=== PATIENT | female | born 1985 | race American Indian/Alaskan Native ===

== ENCOUNTER 2018-07-05 11:56 | Emergency (ER) | payer MEDICAID, OTHER ==
[2018-07-05 12:33] VITALS: BP 112/71
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
[2018-07-05] MEDS ORDERED: BOOSTRIX IM ONE (12:42)
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
--- NOTE | 2018-07-05 13:39 | XRay Report ---
Right wrist, right hand: Trauma, pain. AP and lateral views of the wrist are unremarkable. AP and lateral views of the hand demonstrates a comminuted fracture the base of the fifth metacarpal with fragmentation and mild separation of the fragments. The bone appears to be relatively well aligned. The adjacent carpal bone does not appear fractured and the remainder of the hand is generally unremarkable. Impression: Fifth metacarpal fracture.
== END 2018-07-05 13:31 | disposition home or self-care (01) ==
LOC: ED 11:56
DX: S62.346G Nondisplaced fracture of base of fifth metacarpal bone, right hand, subsequent encounter for fracture with delayed healing (principal); F17.200 Nicotine dependence, unspecified, uncomplicated; X58.XXXD Exposure to other specified factors, subsequent encounter
CPT/HCPCS: 90471; 90715

== ENCOUNTER 2019-10-03 12:07 | Emergency (ER) | payer OTHER ==
[2019-10-03 12:12] VITALS: BP 128/80
--- NOTE | 2019-10-03 12:17 | Emergency Department Report ---
Blank Doc - Documentation Documentation: 33-year-old female that presents with right ankle pain, neck pain, and lower b ack pain s/p trip and fall. This initial assessment/diagnostic orders/clinical plan/treatment(s) is/are subject to change based on patient's health status, clinical progression and re- assessment by fellow clinical providers in the ED. Further treatment and workup at subsequent clinical providers discretion. Patient/guardians urged not to elope from the ED as their condition may be serious if not clinically assessed and managed. Initial orders include: 1- Patient sent to [facility] for further evaluation and treatment 2- xrays
[2019-10-03 13:04] LABS: Bilirubin,Urine NEG (Negative); Blood,Urine SM (Negative); Color,Urine Yellow (Yellow); Mucus,Urine 1+ /HPF; Protein,Urine <15 mg/dL mg/dL (Negative); Urobilinogen,Urine < 2.0 mg/dL (<2.0)
[2019-10-03 13:11] LABS: HCG Qualitative,Urine Negative (Negative)
--- NOTE | 2019-10-03 13:46 | XRay Report ---
XR spine cervical 2-3V INDICATION / CLINICAL INFORMATION: Neck pain after fall. COMPARISON: None available. FINDINGS: BONES/JOINT(S): No acute fracture or subluxation. No significant degenerative changes. SOFT TISSUES: No significant abnormality. ADDITIONAL FINDINGS: None. Signer Name: Pedro Skelton MD Signed: 10/03/2019 1:42 PM Workstation Name: [id number]
--- NOTE | 2019-10-03 13:47 | XRay Report ---
XR spine lumbosacral 2-3V INDICATION / CLINICAL INFORMATION: Back pain after fall. COMPARISON: None available. FINDINGS: BONES/JOINT(S): No acute fracture or subluxation. No significant degenerative changes. SOFT TISSUES: No significant abnormality. ADDITIONAL FINDINGS: None. Signer Name: Pedro Skelton MD Signed: 10/03/2019 1:42 PM Workstation Name: [id number]
--- NOTE | 2019-10-03 13:47 | XRay Report ---
XR ankle 3+V RT INDICATION / CLINICAL INFORMATION: pain s/p fall. COMPARISON: None available. FINDINGS: BONES/JOINT(S): No acute fracture or subluxation. Remote well-corticated avulsion fragments from the medial and lateral malleoli. No significant degenerative change. SOFT TISSUES: No significant abnormality. ADDITIONAL FINDINGS: None. Signer Name: Pedro Skelton MD Signed: 10/03/2019 1:43 PM Workstation Name: [id number]
--- NOTE | 2019-10-03 14:16 | Emergency Department Report ---
ED Fall HPI - General Chief Complaint: Fall Stated Complaint: BODY PAIN Time Seen by Provider: 10/03/19 12:15 Source: patient Mode of arrival: Ambulatory - Related Data Previous Rx's Medication Instructions Recorded Last Taken Type Ibuprofen [Motrin] 600 mg PO Q8H PRN #20 tablet 07/05/18 Unknown Rx Allergies Allergy/AdvReac Type Severity Reaction Status Date / Time No Known Allergies Allergy Verified 10/03/19 12:08 ED Review of Systems ROS: Stated complaint: BODY PAIN Other details as noted in HPI ED Past Medical Hx - Past Medical History Previous Medical History?: No - Surgical History Additional Surgical History: CSECTION - Social History Smoking Status: Current Every Day Smoker Substance Use Type: Alcohol, Marijuana - Medications Home Medications: Home Medications Medication Instructions Recorded Confirmed Last Taken Type Ibuprofen [Motrin] 600 mg PO Q8H PRN #20 tablet 07/05/18 Unknown Rx ED Physical Exam - General Limitations: No Limitations ED Course Vital Signs 10/03/19 12:11 Temperature 98.7 F Pulse Rate 84 Respiratory 20 Rate Blood Pressure 128/80 O2 Sat by Pulse 99 Oximetry ED Medical Decision Making - Radiology Data Radiology results: report reviewed Print Report Referring Physician:ELZBIETA WISEPatient Name:KAYE PENNINGTONPatient ID:[id number] of :[id number]:FemaleAccession:[id number] Date:5135-76-41Vxjiny Status:Finalized Findings [address] [address] XRay Report Signed Patient: KAYE PENNINGTON MR#: [id number] : 1985 Acct:[id number] Age/Sex: 33 / F ADM Date: 10/03/19 Loc: ED Attending Dr: Ordering Physician: ELZBIETA WISE NP Date of Service: 10/03/19 Procedure(s): XR spine lumbosacral 2-3V Accession Number(s): [id number] cc: ELZBIETA WISE NP Fluoro Time In Minutes: XR spine lumbosacral 2-3V INDICATION / CLINICAL INFORMATION: Back pain after fall. COMPARISON: None available. FINDINGS: BONES/JOINT(S): No acute fracture or subluxation. No significant degenerative changes. SOFT TISSUES: No significant abnormality. ADDITIONAL FINDINGS: None. Signer Name: Pedro Skelton MD Signed: 10/03/2019 1:42 PM Workstation Name: [id number] Print Report Referring Physician:ELZBIETA WISEPatient Name:KAYE CORNELIUSIDPatient ID:[id number] of :[id number]:FemaleAccession:[id number] Date:1791-66-19Ccwggy Status:Finalized Findings [address] [address] XRay Report Signed Patient: KAYE PENNINGTON MR#: [id number] : 1985 Acct:[id number] Age/Sex: 33 / F ADM Date: 10/03/19 Loc: ED Attending Dr: Ordering Physician: ELZBIETA WISE NP Date of Service: 10/03/19 Procedure(s): XR spine cervical 2-3V Accession Number(s): [id number] cc: ELZBIETA WISE NP Fluoro Time In Minutes: XR spine cervical 2-3V INDICATION / CLINICAL INFORMATION: Neck pain after fall. COMPARISON: None available. FINDINGS: BONES/JOINT(S): No acute fracture or subluxation. No significant degenerative changes. SOFT TISSUES: No significant abnormality. ADDITIONAL FINDINGS: None. Signer Name: Pedro Skelton MD Signed: 10/03/2019 1:42 PM Workstation Name: [id number] Transcribed By: VENANCIO Dictated By: Pedro Skelton MD Electronically Authenticated By: Pedro Skelton MD Signed Date/Time: 10/03/19 1342 DD/ 1342 TD/TT: Print Report Referring Physician:ELZBIETA WISEPatient Name:KAYE CORNELIUSIDPatient ID:[id number] of :[id number]:FemaleAccession:[id number] Date:0565-37-80Goeayq Status:Finalized Findings [address] [address] XRay Report Signed Patient: KAYE PENNINGTON MR#: [id number] : 1985 Acct:[id number] Age/Sex: 33 / F ADM Date: 10/03/19 Loc: ED Attending Dr: Ordering Physician: ELZBIETA WISE NP Date of Service: 10/03/19 Procedure(s): XR ankle 3+V RT Accession Number(s): [id number] cc: ELZBIETA WISE NP Fluoro Time In Minutes: XR ankle 3+V RT INDICATION / CLINICAL INFORMATION: pain s/p fall. COMPARISON: None available. FINDINGS: BONES/JOINT(S): No acute fracture or subluxation. Remote well-corticated avulsion fragments from the medial and lateral malleoli. No significant degenerative change. SOFT TISSUES: No significant abnormality. ADDITIONAL FINDINGS: None. Signer Name: Pedro Skelton MD Signed: 10/03/2019 1:43 PM Workstation Name: [id number] Critical care attestation.: If time is entered above; I have spent that time in minutes in the direct care of this critically ill patient, excluding procedure time. ED Disposition Condition: Stable Referrals: PRIMARY CARE, [Primary Care Provider] - 3-5 Days
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
== END 2019-10-03 14:25 | disposition left against medical advice (07) ==
LOC: ED 12:07
DX: R52 Pain, unspecified (principal); Z53.21 Procedure and treatment not carried out due to patient leaving prior to being seen by health care provider
CPT/HCPCS: 72040; 72100; 81001; 81025